=== PATIENT | male | born 1945 | race Two or more races ===

== ENCOUNTER 2021-05-29 20:27 | Emergency (ER) | payer OTHER ==
[~2021-05-29] VITALS: Ht 185.4 cm; Wt 111.1 kg
[2021-05-29] MEDS ORDERED: TRANDOLAPR-VER1 EAC3 (20:36)
[2021-05-29] MEDS ORDERED: COZAAR100 MG (20:38)
[2021-05-29] MEDS ORDERED: LIPITOR40 M1 (20:39)
[2021-05-29] MEDS ORDERED: DICLOFENAC SODI75 MG PO (21:35)
== END 2021-05-29 21:40 | disposition home or self-care (01) ==
LOC: ER 20:27
DX: M25.512 Pain in left shoulder (principal)

== ENCOUNTER 2022-07-20 13:44 | Outpatient (CLI) | payer OTHER ==
[~2022-07-20 13:44] MED LIST: COZAAR100 MG; DICLOFENAC SODI75 MG PO; LIPITOR40 M1; TRANDOLAPR-VER1 EAC3
== END 2022-07-20 13:49 | disposition home or self-care (01) ==
LOC: RAD 13:44
DX: M54.2 Cervicalgia (principal); M79.641 Pain in right hand

== ENCOUNTER 2022-11-04 09:52 | Emergency (ER) | payer OTHER ==
[~2022-11-04] VITALS: Ht 182.9 cm; Wt 108.9 kg
[2022-11-04] MEDS ORDERED: PAXLOVID 300-11 EACH PO (12:13)
[2022-11-04] MEDS ORDERED: DOLOGEN CAPLET1 EACH PO (12:13)
[2022-11-04] MEDS ORDERED: TUSNEL LIQUID178 ML PO (12:13)
== END 2022-11-04 12:20 | disposition home or self-care (01) ==
LOC: ER 09:52
DX: U07.1 COVID-19 (principal); R09.81 Nasal congestion; I10 Essential (primary) hypertension

== ENCOUNTER 2023-05-12 20:35 | Emergency (ER) | payer OTHER ==
[~2023-05-12] VITALS: Ht 180.3 cm; Wt 109.8 kg
[~2023-05-12 20:35] MED LIST changes: +DOLOGEN CAPLET1 EACH PO; +PAXLOVID 300-11 EACH PO; +TUSNEL LIQUID178 ML PO
[2023-05-12 21:21] LABS: HEMATOCRIT 37.3 % (39.0-48.0); HEMOGLOBIN 12.6 g/dL (13-16.00); MEAN CELL VOLUME 88.4 fL (80.0-100.00); MEAN CORPUSCULAR HEMOGLOBIN 29.9 pg (27.00-32.0); MEAN CORPUSCULAR HGB CONC 33.8 g/dl (32.0-36.0); RED BLOOD COUNT 4.21 M/uL (4.00-6.00)
[2023-05-12 21:22] LABS: PLATELET COUNT 96 K/uL (150-450)
[2023-05-12 21:33] LABS: ALBUMIN 3.3 gm/dL (3.4-5.0); BILIRUBIN TOTAL 0.43 mg/dL (0.3-1.2); CALCIUM 8.5 mg/dL (8.5-10.1); CREATININE SERUM 1.47 mg/dL (0.70-1.30); GFR 46.45; GLOBULINA 3.8 G/DL (2.4-3.5); POTASSIUM 4.17 mEq/L (3.5-5.1); TOTAL PROTEIN 7.1 gm/dL (6.4-8.2)
[2023-05-12] MEDS ORDERED: MEDROLPACK PO (21:53)
[2023-05-12] MEDS ORDERED: INTESTINEX680 M1 PO (21:53)
[2023-05-12] MEDS ORDERED: XOPENEX CO1.25 MG/0. IH (21:53)
[2023-05-12] MEDS ORDERED: TUSNEL LIQUID178 ML PO (21:53)
[2023-05-12] MEDS ORDERED: DUI500 PO (21:55)
[2023-05-12] MEDS ORDERED: ZITHROMAX500 MG PO (21:55)
[2023-05-12 22:14] LABS: ABG PH 7.469 (7.35-7.45); ABG PO2 118.7 mmHg (80-100); ABG pCO2 29.7 mmHg (35-45); BASE EXCESS -1.3 mmol/l; BICARBONATE 21.1 mmol/l (23-25); SaO2 98.9 %
[2023-05-12 22:15] LABS: allen test SATISFACTORY; o2 21 %; puncture site RADIAL RIGHT
== END 2023-05-12 22:12 | disposition home or self-care (01) ==
LOC: ER 20:35
PROVIDERS: General Practice
DX: J18.9 Pneumonia, unspecified organism (principal); J06.9 Acute upper respiratory infection, unspecified; Z20.822 Contact with and (suspected) exposure to COVID-19; I10 Essential (primary) hypertension; Z88.8 Allergy status to other drugs, medicaments and biological substances
CPT/HCPCS: 36415; 71250; 82803; 94640; 96365; 99284; J0696; J2930

== ENCOUNTER 2025-02-11 19:34 | Emergency (ER) | payer OTHER ==
[~2025-02-11] VITALS: Ht 172.7 cm; Wt 90.7 kg
[~2025-02-11 19:34] MED LIST changes: +DUI500 PO; +INTESTINEX680 M1 PO; +MEDROLPACK PO; +XOPENEX CO1.25 MG/0. IH; +ZITHROMAX500 MG PO
[2025-02-11] MEDS ORDERED: TAMS0.4C (19:44)
[2025-02-11] MEDS ORDERED: ONDANSETRON HCL 4 MG in 0.9 % SODIUM CHLORIDE 50 ML IV ONE (19:45)
[2025-02-11] MEDS ORDERED: ACETAMINOPHEN 500 MG GEL..CAP PO ONE (19:45)
[2025-02-11] MEDS ORDERED: 0.9 % SODIUM CHLORIDE 1,000 ML IV SCH (19:45)
[2025-02-11] MEDS ORDERED: FAMOTIDINE/PF 20 MG in 0.9 % SODIUM CHLORIDE 8 ML IV PUSH ONE (19:45)
[2025-02-11 19:57] LABS: BASO % 0.6 % (0.1-1.2); EOS # 0.18 (0.04-0.54); EOS % 2.6 % (0.7-7.0); LYMPH # 1.71 (1.18-3.74); LYMPH % 24.9 % (19.3-53.1); MEAN PLATELET VOLUME 12.80 fl (9.4-12.4); MONO # 0.55 (0.24-0.82); MONO % 8.0 % (4.7-12.5); NEUT # 4.39 (1.56-6.13); NEUT % 63.8 % (34.0-71.1); RED CELL DISTRIBUTION WIDTH 12.7 % (11.6-14.4)
[2025-02-11 20:17] LABS: INR 1.01
[2025-02-11 20:24] LABS: ALT/SGPT 32.0 U/L (12-78); AST/SGOT 19.0 U/L (15-37); BILIRUBIN TOTAL 0.42 mg/dL (0.3-1.2); BUN CREA RATIO 18.0 (7.0-25.0); CREATININE SERUM 1.52 mg/dL (0.70-1.30); GFR 44.57; GLOBULINA 3.4 G/DL (2.4-3.5); OSMOLALITY SERUM 296.0 MOSM/KG (275-295); PHOSPHOKINASE CREATININE 149.0 U/L (39-308)
[2025-02-11 20:26] LABS: GLUCOSE FASTING 236.0 mg/dL (65-100)
[2025-02-11] MEDS ORDERED: DEXAMETHASONE SODIUM PHOSPHATE 4 MG/ML VIAL IV ONE (21:00)
[2025-02-11] MEDS ORDERED: EPINEPHRINE HCL/PF 1 MG/ML AMPUL IR ONE (22:15)
[2025-02-11] MEDS ORDERED: TRAMADOL HCL 50 MG TABLET PO ONE (22:30)
== END 2025-02-11 22:34 | disposition home or self-care (01) ==
LOC: ER 19:34
PROVIDERS: General Practice
DX: S01.81XA Laceration without foreign body of other part of head, initial encounter (principal); S02.2XXA Fracture of nasal bones, initial encounter for closed fracture; S09.93XA Unspecified injury of face, initial encounter; W19.XXXA Unspecified fall, initial encounter; Y93.89 Activity, other specified; Y92.89 Other specified places as the place of occurrence of the external cause; Y99.8 Other external cause status; I10 Essential (primary) hypertension; E11.9 Type 2 diabetes mellitus without complications; Z88.1 Allergy status to other antibiotic agents
CPT/HCPCS: 12011; 36415; 70450; 70486; 70490; 71045; 93005; 96365; 96366; 99284; J1100; J3490; J7030